=== PATIENT | female | born 1985 | race African-American/Black ===

== ENCOUNTER 2016-07-18 08:10 | Emergency (ER) | payer SELFPAY ==
[2016-07-18] MEDS ORDERED: ALPRAZolam 0.25 MG TAB ONE (09:10)
[2016-07-18 09:42] LABS: ALT (SGPT) 38 U/L (0-55); AST (SGOT) 28 U/L (5-34); Alkaline Phosphatase 103 U/L (40-150); Anion Gap 13 mmol/L (10-20); BUN (Urea Nitrogen) 5 mg/dL (7.0-18.7); Bilirubin, Total 0.7 mg/dL (0.2-1.2); Calc. Creatinine Clearance 0 mL/min (70-130); Calcium 9.3 mg/dL (7.8-10.44); Carbon Dioxide 21 mmol/L (22-29); Chloride 109 mmol/L (98-107); Estimated GFR-MDRD Greater than 90; Globulin 3.5 g/dL (2.4-3.5); Protein, Total 7.7 g/dL (6.0-8.3)
[2016-07-18 09:53] LABS: #Basophils 0.1 thou/uL (0.0-0.2); #Eosinphils 0.2 thou/uL (0.0-0.7); #Lymphocytes 2.6 thou/uL (1.20-3.40); #Monocytes 0.9 thou/uL (0.11-0.59); #Neutrophils 8.9 thou/uL (1.40-6.50); %Eosinophils 1.8 % (0.0-10.0); %Lymphocytes 20.6 % (21.0-51.0); %Monocytes 7.2 % (0.0-10.0); Hematocrit 43.8 % (36.0-47.0); Mean Platelet Volume 9.8 fL (7.4-10.4); Microcytosis SLIGHT = 6-15 cells (100X) (0-5/hpf); Red Blood Cell (RBC) Count 6.08 mill/uL (4.20-5.40); White Blood Cell (WBC) Count 12.8 thou/uL (4.8-10.8)
--- NOTE | 2016-07-18 11:46 | PICIS ---
[facility] EMERGENCY RECORD TRIAGE (TueJul 18, 2016 08:18 BDON) TRIAGE NOTES: Bilateral nose bleed which started yesterday, intermittent "dripping" Started after blowing nose. (TueJul 18, 2016 08:18 BDON) PATIENT: NAME: Anu Wilde, AGE: 31, GENDER: female, : Sat 1985, TIME OF GREET: TueJul 18, 2016 08:11, PREFERRED LANGUAGE: Setswana, ETHNICITY: Not or , ECODE BILLING MAP: [facility] ER, SSN: [id number], Zip Code: [address], KG WEIGHT: 116.12, , , PERSON ID: [id number], PCP: Herman. (TueJul 18, 2016 08:18 BDON) PHONE: . (08:38) COMPLAINT: NOSE KEEPS BLEEDING. (TueJul 18, 2016 08:18 BDON) ADMISSION: URGENCY: 5 Fast Track, ADMISSION SOURCE: Home, TRANSPORT: Walk-in, BED: TRIAGE. (TueJul 18, 2016 08:18 BDON) ASSESSMENT: Assessment: Bilateral nosebleed which started after blowing nose yesterday, dripping this morning. None noted now, Symptoms began yesterday. (08:20 BDON) LMP: Last menstrual period: 06/19/2016. (08:20 BDON) TREATMENTS IN PROGRESS: Treatments given Prehospital: none. (08:20 BDON) PROVIDERS: TRIAGE NURSE: Rhoda Garcia RN. (TueJul 18, 2016 08:18 BDON) VITAL SIGNS: BP 152/69, Pulse 111, Resp 18, Temp 98.7, (Oral), Pain 0, O2 Sat 96, Time 07/18/2016 08:16. (08:16 BDON) PREVIOUS VISIT ALLERGIES: No Known Drug Allergies. (TueJul 18, 2016 08:18 BDON) No Known Drug Allergies. (08:20 BDON) KNOWN ALLERGIES No Known Drug Allergies CURRENT MEDICATIONS (08:19 BDON) None VITAL SIGNS VITAL SIGNS: BP: 152/69, Pulse: 111, Resp: 18, Temp: 98.7 (Oral), Pain: 0, O2 sat: 96, Time: 07/18/2016 08:16. (08:16 BDON) BP: 139/79, Pulse: 105, Resp: 18, Temp: 99.5 (Oral), Pain: 0, O2 sat: 96 on Room Air, Time: 07/18/2016 10:05. (10:05 MCBE) NURSING ASSESSMENT: NOSE (08:21 BDON) CONSTITUTIONAL: Patient arrives ambulatory, Gait steady, History obtained from patient, Patient appears comfortable, Patient cooperative, Patient alert, Oriented to person, place and time, Skin warm, Skin dry, Skin normal in color, Patient is well-groomed. NOSE: no associated bleeding, Notes: no bleeding noted at this time, states it has been dripping. SAFETY: Cart/Stretcher in lowest position, Hospital ID band on, Patient in view of the nursing station. &a-1R&a+25V*p+0X*[id number]*c202B*c15G*c2P*p-0X&a-25V&a+1R Name: Anu Wilde : 1985 F31 MedRec: [id number] AcctNum: [id number] Prepared: Kerri Jul 18, 2016 10:53 by Interface Page 1 of 7 pMD [facility] EMERGENCY RECORD NURSING PROCEDURE: DISCHARGE NOTE (10:40 MCBE) DISCHARGE: Patient discharged to home, ambulating without assistance, family driving, accompanied by //partner, Summary of Care printed/ provided, Discharge instructions given to patient, Simple or moderate discharge teaching performed, by NALLELY LE, EXPLAINED DISCHARGE INSTRUCTIONS. INSTRUCTED TO RETURN IF S/S WORSEN, Above person(s) verbalized understanding of discharge instructions and follow-up care, Patient treated and evaluated by physician. BELONGINGS: Belongings and valuables with patient upon arrival to the Emergency Department include:, Belongings and valuables with patient at time of discharge include:, pants, shirt, shoes, sweater, Belongings remain with patient, Valuables remain with patient. NURSING PROCEDURE: LAB DRAW (09:18 BDON) PATIENT IDENTIFIER: Patient actively involved in identification process. LAB DRAW: Initial lab draw performed, by venipuncture. NURSING PROCEDURE: NURSE NOTES (09:20 BDON) NURSES NOTES: Notes: no nose bleed in ER, family at bedside. ORDER DETAILS Order Name: CBC with Differential, Status: Active, Time: 08:38 07/18/2016, User: TRAE, - Ordered for: MD Arreola Joseph, - Entered by: MD Arreola Joseph - Kerri Jul 18, 2016 08:38, - Quantity: 1, Order Name: Comprehensive Metabolic Panel, Status: Active, Time: 08:38 07/18/2016, User: TRAE, - Ordered for: MD Arreola Joseph, - Entered by: MD Arreola Joseph - Kerri Jul 18, 2016 08:38, - Quantity: 1. MEDICATION ADMINISTRATION SUMMARY Drug Name: Xanax, Dose Ordered: 0.5 mg, Route: Oral, Status: Given, Time: 09:18 07/18/2016, Detailed record available in Medication Service section. MEDICATION SERVICE (09:18 JROB) Xanax: Order: Xanax (alprazolam) - Dose: 0.5 mg : Oral Schedule: Now Ordered by: Eladio Arreola MD Entered by: MD Kerri Velasquez Jul 18, 2016 08:37 Documented as given by: MIMI Reyes Jul 18, 2016 09:18 Patient, Medication, Dose, Route and Time verified prior to &a-1R&a+25V*p+0X*z1882A*c202B*c15G*c2P*p-0X&a-25V&a+1R Name: Anu Wilde : 1985 F31 MedRec: [id number] AcctNum: [id number] Prepared: Kerri Jul 18, 2016 10:53 by Interface Page 2 of 7 D [facility] EMERGENCY RECORD administration. Site: Medication administered P.O., Correct patient, time, route, dose and medication confirmed prior to administration, Patient advised of actions and side-effects prior to administration, Allergies confirmed and medications reviewed prior to administration. HPI EPISTAXIS (10:03 JROB) CHIEF COMPLAINT: Patient presents for evaluation of epistaxis. HISTORIAN: History provided by patient, 31 year old female presents with nose bleed that started this yesterday. Described as blood dripping, from both nostrils, started after blowing her nose. Has had similar nose bleeds in the past, just not this bad. She denies bleeding from other body areas. LOCATION: Symptoms are localized, most severe in bilateral nare. TIME COURSE: Sudden onset of symptoms. ASSOCIATED WITH: No associated anticoagulant use, No associated bleeding dyscrasia, No associated cough, No associated foreign body, No associated headache, No associated recent nasal surgery, No associated trauma, No associated vomiting, No associated weakness, No associated history of hypertension. EXACERBATED BY: Patient's condition exacerbated by blowing nose. RELIEVED BY: Patient's condition relieved by direct pressure. RISK FACTORS: No epistaxis risk factors. ROS (10:05 JROB) CONSTITUTIONAL: Historian denies chills, denies fever. EYES: Historian denies vision changes. ENT: Historian reports epistaxis. CARDIOVASCULAR: Historian denies chest pain, denies syncope. RESPIRATORY: Historian denies cough, denies shortness of breath. GI: Historian denies hematemesis, denies hematochezia. GENITOURINARY FEMALE: Historian denies hematuria. MUSCULOSKELETAL: Historian denies back pain. SKIN: Historian denies skin changes. NEUROLOGIC: Historian denies focal weakness, denies headache, denies sensory changes. HEMO/LYMPHATIC: Historian denies abnormal blood clotting. ALLERGIC/IMMUNOLOGIC: Historian denies frequent infections. PSYCHIATRIC: Historian denies alcohol abuse, denies drug abuse. NOTES: All systems reviewed, negative except as described above. PAST MEDICAL HISTORY MEDICAL HISTORY: Flu vaccine not up to date, Tetanus immunization up to date, No past medical history,. (08:20 BDON) FEMALE SURGICAL HISTORY: Surgical history of section, Notes: x2. (08:20 BDON) PSYCHIATRIC HISTORY: No previous psychiatric history. (08:20 BDON) SOCIAL HISTORY: Patient drinks socially, Patient denies &a-1R&a+25V*p+0X*g1181L*c202B*c15G*c2P*p-0X&a-25V&a+1R Name: Anu Wilde : 1985 F31 MedRec: [id number] AcctNum: [id number] Prepared: Kerri Jul 18, 2016 10:53 by Interface Page 3 of 7 pMD [facility] EMERGENCY RECORD drug use, Patient currently uses tobacco, smokes cigarettes. (08:20 BDON) NOTES: Nursing records reviewed, Agree with nursing records, Medication list reviewed. (10:08 JROB) PHYSICAL EXAM (10:06 JROB) CONSTITUTIONAL: Vital Signs Reviewed, Patient afebrile, Pulse, tachycardic, Blood pressure, hypertensive, Patient alert and oriented to person, place and time. HEAD: Head exam normal, Head exam included findings of head atraumatic. EYES: Eye exam normal, Pupils equally round and reactive to light, Extraocular muscles intact. ENT: No active epistaxis. Dried blood in right nare. No septal hematoma., Pharynx exam normal, Mouth exam normal. NECK: Neck exam normal, no cervical adenopathy. RESPIRATORY CHEST: Respiratory and chest exam normal, Breath sounds clear, No wheezing, No rales, No rhonchi. CARDIOVASCULAR: Cardiovascular assessment normal, Cardiovascular exam included findings of heart rate regular rate and rhythm, Heart sounds normal. ABDOMEN FEMALE: Abdominal exam included findings of abdomen nontender, no distension, no peritoneal signs. BACK: Back exam normal, Back exam included findings of normal inspection. UPPER EXTREMITY: Upper extremity exam normal, Upper extremity exam included findings of inspection normal, Motor strength normal, Sensation intact. LOWER EXTREMITY: Lower extremity exam normal, Lower extremity exam included findings of inspection normal, Motor strength normal, Sensation intact. NEURO: Neuro exam findings include patient oriented to person, place and time, no focal motor deficits, no focal sensory deficits. SKIN: Skin exam included findings of skin warm, dry. LAB INTERPRETATION (10:13 JROB) INTERPRETATION: I reviewed the lab results, CBC abnormal, White blood cell count elevated, CBC otherwise normal, Chemistry abnormal, Chloride elevated, BUN decreased, Bicarbonate decreased, Chemistry otherwise normal, Liver functions normal. EVENTS TRANSFER: Triage to Emergency Triage. (08:18 BDON) Emergency Triage to Emergency Room -03. (08:19 BDON) Removed from Emergency Emergency Room -03. (10:44 MCBE) O2SAT INTERPRETATION (10:08 JROB) O2SAT: Single pulse oximetry, Oxygen saturation 96%, on room air, &a-1R&a+25V*p+0X*i3966A*c202B*c15G*c2P*p-0X&a-25V&a+1R Name: Anu Wilde : 1985 F31 MedRec: [id number] AcctNum: [id number] Prepared: Kerri Jul 18, 2016 10:53 by Interface Page 4 of 7 pMD [facility] EMERGENCY RECORD Oxygen saturation interpretation: Normal, No intervention required. DOCTOR NOTES TEXT: No active bleeding on arrival. Initial vital signs showed tachycardia with hypertension. Patient admitted to "freaking out" this morning when bleeding was active. Ordered Xanax, labs. Labs show Hgb 12, normal platelets. Repeat exam shows decreased blood pressure and heart rate with mild persistent tachycardia at 105. (10:08 JROB) Patient states that the meds made her feel "a little better". Mild persistent tachycardia is likely related to some persistent anxiety/stress. Discussed smoking cessation, use of petroleum jelly in nares to maintain moisture in nasal mucosa, which may help to decrease future episodes of epistaxis. Will d/c home to follow up in clinic. (10:14 JROB) PATIENT STATUS: Patient has improved since arrival to emergency department. (10:14 JROB) PATIENT PLAN: The patient will be discharged, The patient will follow up with primary care physician. (10:14 JROB) DATA REVIEWED: Lab data reviewed. (10:14 JROB) PROBLEM LIST No recorded problems DIAGNOSIS DIFFERENTIAL: Based on history, exam and ancillary studies if indicated: Impression: mucosal bleeding, Impression: anterior epistaxis, Impression: posterior epistaxis, Impression: Anemia, Thrombocytopenia, Diagnoses considered are not limited to those documented above. (10:19 JROB) FINAL: PRIMARY: EPISTAXIS. (10:20 JROB) DISPOSITION PATIENT: Disposition Type: Discharge, Disposition: *Discharge Home. (10:20 JROB) Patient left the department. (10:44 MCBE) INSTRUCTION (10:20 JROB) DISCHARGE: EPISTAXIS (ADULT), SMOKING CESSATION. FOLLOWUP: Follow up with Primary Care Physician in 3-4 days. SPECIAL: Follow-up with your PCP We hope you feel better soon! We are always happy to take care of you and your family! Return to the ER immediately for any new, concerning, or worsening symptoms. PRESCRIPTION No recorded prescriptions IMAGING *DISCHARGE INSTRUCTIONS RECEIPT: Image captured from scanner. &a-1R&a+25V*p+0X*d9144B*c202B*c15G*c2P*p-0X&a-25V&a+1R Name: Anu Wilde : 1985 F31 MedRec: [id number] AcctNum: [id number] Prepared: Kerri Jul 18, 2016 10:53 by Interface Page 5 of 7 pMD [facility] EMERGENCY RECORD (10:47 MCBE) *SUPPLY CHARGE SHEET: Image captured from scanner. (10:48 MCBE) ADMIN (10:21 JROB) DIGITAL SIGNATURE: MD Arreola Joseph. RESULTS LABORATORY: Comprehensive Metabolic Panel Collection DT: Kerri Jul 18, 2016 09:23, Sodium 139 mmol/L, Range (136-145), Potassium 3.5 mmol/L, Range (3.5-5.1), *Chloride 109 - H mmol/L, Range (98-107), *Carbon Dioxide 21 - L mmol/L, Range (22-29), Anion Gap 13 mmol/L, Range (10-20), *BUN (Urea Nitrogen) 5 - L mg/dL, Range (7.0-18.7), Creatinine 0.77 mg/dL, Range (0.6-1.1), Estimated GFR-MDRD Greater than 90 , Reference Range for Estimated GFR: Greater than 90, mL/min/1.73 m2 NOTE: The MDRD equation has not been validated for use, with the elderly (over 70 years of age), women, patients with, serious comorbid condition or persons with extremes of body size, muscle, mass, or nutritional status. , Glucose 91 mg/dL, Range (70-105), Calcium 9.3 mg/dL, Range (7.8-10.44), Bilirubin, Total 0.7 mg/dL, Range (0.2-1.2), Protein, Total 7.7 g/dL, Range (6.0-8.3), NOTE: Plasma values are generally 0.3 to 0.5 g/dL higher than serum values, due to the presence of fibrinogen. , Albumin 4.2 g/dL, Range (3.5-5.0), Globulin 3.5 g/dL, Range (2.4-3.5), Alb/Glob Ratio 1.2 g/dL, Range (1.2-2.2), Alkaline Phosphatase 103 U/L, Range (40-150), AST (SGOT) 28 U/L, Range (5-34), ALT (SGPT) 38 U/L, Range (0-55). (09:45 JROB) CBC with Differential Collection DT: Kerri Jul 18, 2016 09:23, *White Blood Cell (WBC) Count 12.8 - H thou/uL, Range (4.8-10.8), *Red Blood Cell (RBC) Count 6.08 - H mill/uL, Range (4.20-5.40), Hemoglobin 13.5 g/dL, Range (12.0-16.0), Hematocrit 43.8 %, Range (36.0-47.0), *Mean Corpuscular Volume 72.1 - L fl, Range (81.0-99.0), *Mean Corpuscular Hemoglobin 22.3 - L pg, Range (27.0-31.0), *Mean Corpuscular HGB CONC 30.9 - L g/dL, Range (32.0-36.0), RBC Distribution Width 13.6 %, Range (11.5-14.5), Platelet Count 206 thou/uL, Range (130-400), Mean Platelet Volume 9.8 fL, Range (7.4-10.4), &a-1R&a+25V*p+0X*a0014N*c202B*c15G*c2P*p-0X&a-25V&a+1R Name: Anu Wilde : 1985 F31 MedRec: [id number] AcctNum: [id number] Prepared: Kerri Jul 18, 2016 10:53 by Interface Page 6 of 7 pMD [facility] EMERGENCY RECORD %Neutrophils 69.5 %, Range (42.0-75.0), *%Lymphocytes 20.6 - L %, Range (21.0-51.0), %Monocytes 7.2 %, Range (0.0-10.0), %Eosinophils 1.8 %, Range (0.0-10.0), %Basophils 1.0 %, Range (0.0-1.0), *#Neutrophils 8.9 - H thou/uL, Range (1.40-6.50), #Lymphocytes 2.6 thou/uL, Range (1.20-3.40), *#Monocytes 0.9 - H thou/uL, Range (0.11-0.59), #Eosinphils 0.2 thou/uL, Range (0.0-0.7), #Basophils 0.1 thou/uL, Range (0.0-0.2), Microcytosis SLIGHT = 6-15 cells (100X), Range (0-5/hpf), PLT Morphology Comment Appears Adequate . (10:00 JROB) Purcell: BDHELEAN=MIMI Garcia, Rhoda JROB=MD Maxwell, Eladio MCBE=[facility] &a-1R&a+25V*p+0X*v5279R*c202B*c15G*c2P*p-0X&a-25V&a+1R Name: Anu Wiled : 1985 F31 MedRec: [id number] AcctNum: [id number] Prepared: Kerri Jul 18, 2016 10:53 by Interface Page 7 of 7 pMD MTDD
== END 2016-07-18 10:40 | disposition home or self-care (01) ==
LOC: NAV ERS 08:10
DX: R04.0 Epistaxis (principal); F17.210 Nicotine dependence, cigarettes, uncomplicated
CPT/HCPCS: 80053; 85025; 99283

== ENCOUNTER 2017-02-16 18:08 | Emergency (ER) | payer SELFPAY | END 2017-02-16 18:30 | disposition home or self-care (01) | LOC: NAV ERS 18:08 | DX: B35.6 Tinea cruris (principal); F17.210 Nicotine dependence, cigarettes, uncomplicated | CPT/HCPCS: 99282 ==

== ENCOUNTER 2017-03-11 15:35 | Emergency (ER) | payer SELFPAY | END 2017-03-11 16:30 | disposition home or self-care (01) | LOC: NAV ERS 15:35 | DX: B35.4 Tinea corporis (principal); F17.210 Nicotine dependence, cigarettes, uncomplicated | CPT/HCPCS: 99282 ==

== ENCOUNTER 2017-07-17 14:33 | Emergency (ER) | payer SELFPAY ==
[2017-07-17] MEDS ORDERED: Fluorescein Opthalmic Strip ONE (15:44)
== END 2017-07-17 16:05 | disposition home or self-care (01) ==
LOC: NAV ERS 14:33
DX: S05.01XA Injury of conjunctiva and corneal abrasion without foreign body, right eye, initial encounter (principal); F17.210 Nicotine dependence, cigarettes, uncomplicated; X58.XXXA Exposure to other specified factors, initial encounter
CPT/HCPCS: 99283

== ENCOUNTER 2018-02-05 20:21 | Emergency (ER) | payer SELFPAY ==
[2018-02-05] MEDS ORDERED: Ondansetron ODT 4 MG TAB ONE (20:32)
== END 2018-02-05 20:52 | disposition home or self-care (01) ==
LOC: NAV ERS 20:21
DX: K52.9 Noninfective gastroenteritis and colitis, unspecified (principal); F17.210 Nicotine dependence, cigarettes, uncomplicated; Z79.899 Other long term (current) drug therapy
CPT/HCPCS: 99406; Q0162

== ENCOUNTER 2018-03-16 15:30 | Emergency (ER) | payer SELFPAY ==
[2018-03-16] MEDS ORDERED: Ketorolac Tromethamine 60 MG/2 ML VIAL ONE (16:01)
== END 2018-03-16 16:26 | disposition home or self-care (01) ==
LOC: NAV ERS 15:30
DX: M79.661 Pain in right lower leg (principal); F17.210 Nicotine dependence, cigarettes, uncomplicated
CPT/HCPCS: 96372; J1885

== ENCOUNTER 2022-06-01 15:10 | Emergency (ER) | payer SELFPAY ==
[2022-06-01 16:02] LABS: Bilirubin Negative (Negative); Blood, Urine Negative (Negative); Clarity Cloudy (Clear); Glucose, Urine (Dipstick) Negative (Negative); Ketone, Urine Trace mg/dL (Negative); Leukocyte Negative (Negative); Nitrite Negative (Negative); Protein, Urine (Dipstick) Negative (Neg-Trace); pH, Urine 5.5 (5.0-9.0)
== END 2022-06-01 16:14 | disposition home or self-care (01) ==
LOC: NAV ERS 15:10
DX: M54.50 Low back pain, unspecified (principal); I10 Essential (primary) hypertension; F17.210 Nicotine dependence, cigarettes, uncomplicated
CPT/HCPCS: 81003; 99283

== ENCOUNTER 2024-04-05 12:24 | Emergency (ER) | payer SELFPAY ==
[2024-04-05] MEDS ORDERED: Ibuprofen 200 MG TAB ONE ×2 (13:13→13:16)
[2024-04-05] MEDS ORDERED: Amoxicillin/Potassium Clav 875 MG TAB ONE (13:55)
== END 2024-04-05 14:00 | disposition home or self-care (01) ==
LOC: NAV ERS 12:24
DX: H66.91 Otitis media, unspecified, right ear (principal); I10 Essential (primary) hypertension; F17.210 Nicotine dependence, cigarettes, uncomplicated
CPT/HCPCS: 99283